=== PATIENT | male | born 2000 | race Caucasian/White ===

== ENCOUNTER 2018-09-24 20:53 | Emergency (ER) | payer SELFPAY ==
[~2018-09-24] VITALS: Ht 180.3 cm; Wt 90.9 kg
[2018-09-24 21:28] VITALS: BP 159/81
== END 2018-09-25 | disposition left against medical advice (07) ==
LOC: EMS 20:54
DX: J02.9 Acute pharyngitis, unspecified (principal); R10.13 Epigastric pain; F17.210 Nicotine dependence, cigarettes, uncomplicated; Z53.21 Procedure and treatment not carried out due to patient leaving prior to being seen by health care provider